=== PATIENT | male | born 1935 | race Caucasian/White ===

== ENCOUNTER 2016-12-16 10:55 | Inpatient (IN) | payer MEDICARE, BC, OTHER ==
--- NOTE | ~2016-12-16 | HP ---
History And Physical [place] [id number] [facility] [place]. [address] NAME: MICHAEL JARA : 37 STATUS : ADM IN [facility]#: [id number] AGE: 81 ADM/REG DATE : 12/16/16 MR#: [id number] REPORT SERV DATE: 12/17/16 DICTATED BY: CHANDRA SHARPE DATE: 12/16/16 REPORT STATUS : Draft TRANSCRIBED BY: ARTEM DATE: 12/16/16 DATE OF ADMISSION: 12/16/2016 CHIEF COMPLAINT: Low blood pressure. HISTORY OF PRESENT ILLNESS: This is an 81-year-old gentleman with medical history of chronic kidney disease stage 4; congestive heart failure; ischemic cardiomyopathy, status post AICD placement; hypertension; and asthma, who presented to the security checker for routine followup of asthma treatment who was found to have significant low blood pressure. The patient reports that about a week ago he went to his primary terrazzo mechanic where his blood pressure medications were titrated. It was noted that the dose of diuretics was adjusted as well as some of the antihypertensive medications. They noted that he had a transient hypotension at home where his blood pressure was in the 80s. Daughters report he did not take some of the antihypertensives. Repeat blood pressure at home was in the 120s. The patient reports that about three days ago he recommenced all blood pressure medication and diuretics. He has been having some lightheadedness when going from supine to standing position. He denies any syncopal episode. He denied any chest pain. No associated shortness of breath. No orthopnea, no paroxysmal nocturnal dyspnea, no bilateral lower extremity swelling. He denied any nausea, no vomiting, no diarrhea. He denied any chest pain, fever or chills, or cough. The patient reported that he went to the security checker today for routine followup of his asthma management and was found to have a blood pressure of 87/53. Hence, the security checker decided to admit the patient to the hospital for further evaluation of definitive etiology of hypotension. PAST MEDICAL HISTORY: 1. Chronic kidney disease stage 4. 2. Chronic atrial fibrillation, on chronic anticoagulation. 3. Ischemic cardiomyopathy. 4. History of congestive heart failure with reduced EF of 40%. 5. Hyperlipidemia. 6. History of coronary artery disease. 7. History of renal artery stenosis, status post renal artery stents x4. 8. History of coronary artery disease, status post remote history of CABG. PAST SURGICAL HISTORY: 1. Bilateral knee replacement surgeries. 2. CABG. 3. History of renal stent placement x4. SOCIAL HISTORY: Denies drinking alcohol, smoking cigarettes, or illicit drug use. The patient currently lives with his daughter. It was noted that the patient had been and 5 times. FAMILY HISTORY: Significant for hypertension. No known history of kidney disease or heart attack or [place]. History And Physical [address] [address] NAME: MICHAEL JARA : 36 STATUS : ADM IN PAT#: [id number] AGE: 81 ADM/REG DATE : 12/16/16 MR#: [id number] REPORT SERV DATE: 12/17/16 DICTATED BY: CHANDRA SHARPE DATE: 12/16/16 REPORT STATUS : Draft TRANSCRIBED BY: ARTEM DATE: 12/16/16 ALLERGIES: THE PATIENT IS ALLERGIC TO CODEINE. HOME MEDICATIONS: 1. Nitroglycerin 0.4 mg nitrate. 2. Coreg 6.25 mg p.o. b.i.d. 3. Metolazone 2.5 mg p.o. Mondays. 4. Simvastatin 40 mg p.o. at bedtime. 5. Torsemide 100 mg p.o. daily. 6. Tizanidine 4 mg p.o. t.i.d. 7. Breo Ellipta 100/25 mcg inhaler. 8. Eliquis 2.5 mg p.o. b.i.d. 9. Imdur 60 mg p.o. daily. 10.Zyloprim 100 mg p.o. daily. 11.Ventolin HFA 1 puff every four hours p.r.n. 12.Valsartan 40 mg p.o. daily. 13.Aldactone 25 mg p.o. daily. 14.Tamsulosin 0.4 mg p.o. daily. 15.Albuterol nebulization p.r.n. 16.Phenergan 25 mg p.o. p.r.n. for nausea and vomiting. REVIEW OF SYSTEMS: 12-point review of systems performed, essentially negative. Positive findings as per HPI. PHYSICAL EXAMINATION: VITAL SIGNS: On presentation, blood pressure on the floor initial reading was 87/50, pulse rate of 70 beats per minute, respiratory rate of 14 cycles per minute, and saturating 97% on room air. GENERAL: Not in acute distress. HEENT: Pupils are equal, round, and reactive. Extraocular muscle intact. Not pale. Anicteric. No JVD. Oral mucosa dry. NECK: Supple. No JVD. CHEST: Midline sternotomy surgical scar healed. AICD in the left upper chest wall. Surgical scar around the AICD intact. No erythema. No area of tenderness. Diffuse expiratory wheezes. No crackles. No rhonchi. CARDIOVASCULAR: Regular rate and rhythm. S1 and S2. No murmurs, no rubs, no gallops. ABDOMEN: Obese and nontender. No palpably enlarged organomegaly. LOWER EXTREMITIES: No pedal edema. LABORATORY DATA: WBC 8.4, hemoglobin 13.7, hematocrit 40.9, MCV 100.2, and platelets 138. BNP 96. Comprehensive metabolic panel: Sodium 133, potassium 4.4, chloride 93, bicarb 34, BUN 68, creatinine 2.78, GFR 21, and glucose 88. Total protein 6.7, total bilirubin is 0.6, alkaline phosphatase 66, ALT 26, ALT 26, lactate 1.5. Chest x-ray: Impression: Cardiomegaly, sternotomy. AICD. No acute cardiopulmonary abnormality. ASSESSMENT AND PLAN: History And Physical [address] [address] NAME: MICHAEL JARA : 37 STATUS : ADM [facility]#: [id number] AGE: 81 ADM/REG DATE : 12/16/16 MR#: [id number] REPORT SERV DATE: 12/17/16 DICTATED BY: CHANDRA SHARPE DATE: 12/16/16 REPORT STATUS : Draft TRANSCRIBED BY: MODL DATE: 12/16/16 1. Orthostatic hypotension, likely related to side effect of antihypertensives and diuretics. 2. Chronic kidney disease stage 4. 3. Chronic atrial fibrillation, on chronic anticoagulation. 4. Hypertension. 5. Ischemic cardiomyopathy, status post AICD placement. 6. Chronic heart failure with reduced ejection fraction. PLAN: 1. Given the presence of hypotension with orthostatic symptoms, I will start the patient on IV normal saline bolus. We will recheck blood pressure. Of note, the patient's primary director of kids and terrazzo mechanic are being consulted by Dr. Hwang(patient's primary security checker). 2. There is etiology of hypotension likely related to medication side effect. There is no evidence of sepsis in this patient. No evidence of cardiogenic shock. At this point, we will hold all patient's antihypertensives and diuretics and monitor blood pressure closely. We will reinstitute antihypertensive and diuretics when blood pressure can tolerate. 3. Code status: DNR per family's wishes. 4. DVT prophylaxis: Subcu heparin. ADMISSION DISPOSITION: Inpatient. IOO/MODL Chandra Sharpe MD / [id number] CC: MD Argelia Bush M.D.
--- NOTE | ~2016-12-16 | DS ---
Discharge Summary [facility] [address] [facility] [place]. [address] NAME: MICHAEL JARA : 37 STATUS : DIS IN PAT#: [id number] AGE: 81 ADM/REG DATE : 12/16/16 MR#: [id number] REPORT SERV DATE: 12/22/16 DICTATED BY: CHANDRA SHARPE DATE: 12/21/16 REPORT STATUS : Draft TRANSCRIBED BY: MODLea DATE: 12/21/16 ADMISSION DATE: 12/16/2016 DISCHARGE DATE: 12/21/2016 CONSULTATION: 1. [facility]. 2. Cardiology, Dr. Bar. INVASIVE PROCEDURES: None. DISCHARGE DIAGNOSES: 1. Orthostatic hypotension, resolved. 2. Orthostatic dizziness, resolved. 3. Acute kidney injury on chronic kidney disease stage 4. 4. Chronic heart failure with reduced EF. 5. Ischemic cardiomyopathy. Estimated EF 40% to 45%, status post biventricular pacemaker/ICD insertion. 6. History of coronary artery disease, status post remote history of CABG. 7. Chronic atrial fibrillation. 8. Hyperlipidemia. 9. History of renal artery stenosis, status post renal artery stents. 10.History of coronary artery disease, status post remote history of CABG. DISCHARGE CONDITION: Stable. HISTORY OF PRESENT ILLNESS: For detailed HPI, please make reference to Dr. Chandra Sharpe's dictation. In brief, this is an 81-year-old gentleman with medical history of chronic kidney disease stage 4, congestive heart failure, ischemic cardiomyopathy, status post AICD placement, hypertension who was admitted directly from the charge entry specialist's office with concerns of hypotension. It was of note that the patient recently had a followup with primary deburr operator about two weeks prior to presentation, and his diuretics and antihypertensive medications was transiently increased and per family members report, the patient has had some episodes of hypotension. He went to his primary charge entry specialist's office for followup of his known asthma where he was found to have a blood pressure of 87/53 and persistent lightheadedness and dizziness. The primary charge entry specialist contacted the hospital for direct admission for further evaluation. HOSPITAL COURSE: 1. Orthostatic hypotension. On arrival to the hospital, the patient was orthostatic by symptoms and by vital signs. IV fluid resuscitation was started. The patient's home dose of antihypertensives and diuretics were held. The patient's blood pressure improved after IV fluid normal saline bolus. The patient's blood pressure remained significantly improved after IV fluid bolus, and blood pressure remained stable in the 120s. The patient's primary deburr operator and Cardiology were consulted. The patient's cardiac meds were reinstituted when the patient's blood pressure was able to tolerate. Also, the patient's diuretics were recommenced; however, the patient's creatinine Discharge Summary [address] [address] NAME: MICHAEL JARA : 37 STATUS : DIS IN PAT#: [id number] AGE: 81 ADM/REG DATE : 12/16/16 MR#: [id number] REPORT SERV DATE: 12/22/16 DICTATED BY: CHANDRA SHARPE DATE: 12/21/16 REPORT STATUS : Draft TRANSCRIBED BY: ARTEM DATE: 12/21/16 became elevated from a baseline of 2.78 to 2.94. The patient's diuretics were transiently discontinued. The patient's creatinine then trended back to 2.6. Per Nephrology, the patient was advised to continue to hold all diuretics, to take Demadex if he gains more than 3 pounds within the next five days. The patient was also advised to continue followup with Cardiology and Nephrology as an outpatient. 2. Ischemic cardiomyopathy with EF of 40-45%. No evidence of acute decompensated heart failure. The patient had no chest pain during the course of this admission. The patient was advised to continue followup with Cardiology as an outpatient. DISCHARGE MEDICATIONS: 1. Coreg 6.25 mg p.o. b.i.d. 2. Eliquis 2.5 mg p.o. b.i.d. 3. Imdur 60 mg p.o. daily. 4. Zanaflex 4 mg p.o. t.i.d. p.r.n. for severe muscle spasms. 5. Albuterol solution 0.08% p.r.n. 6. Zocor 40 mg p.o. daily. 7. Demadex 60 mg daily if the patient gains more than 3 pounds within 24-48 hours or greater than 5 pounds per week prior nephrology recommendation. FOLLOW UP: 1. The patient to follow up with [facility] within one to two weeks of discharge. 2. The patient to follow up with primary care physician within one week of discharge. DISCHARGE ACTIVITIES: As tolerated. DISCHARGE DIET: Low salt diet. Greater than 30 minutes was used to prepare this patient's dictation and advised the patient on discharge plans and followup. DICTATED BY: MD ANGE Bush/ARTEM Chandra Sharpe MD / [id number] CC: MD Argelia Bush M.D.
--- NOTE | ~2016-12-16 | CN ---
Consultation Report [facility] [address] [place]. [address] NAME: MICHAEL JARA : 37 STATUS : ADM IN PAT#: [id number] AGE: 81 ADM/REG DATE : 12/16/16 MR#: [id number] REPORT SERV DATE: 12/16/16 DICTATED BY: ROCK BAR JR. DATE: 12/16/16 REPORT STATUS : Draft TRANSCRIBED BY: MODL DATE: 12/16/16 CARDIOLOGY CONSULT DATE OF CONSULTATION: [facility] SURGERY CONSULTANT: Riki Ruth MD. HISTORY OF PRESENT ILLNESS: An 81-year-old, obese, white male, referred from a piano professor office because of symptomatic hypotension and presyncopal spells. Denies chest pain, or change in breathing status. He has just arrived on the monitor floor and workup is currently in progress. Incomplete data. White consults ordered already. EKG shows no acute ST segment change with chronic atrial fibrillation. Currently, apparently on Eliquis anticoagulation with no history of bleeding. He is getting a normal saline bolus for hypotension. He is alert and lying comfortably in bed as long as he does not get up and try to stand. He has an ischemic cardiomyopathy in the past. His ejection fraction has been estimated at 40%-45%. No recent echo. He is status post biventricular pacemaker, ICD insertion, and has a history of CABG and chronic kidney disease. ALLERGIES: CODEINE ALLERGY. MEDICATIONS: Home medication list reviewed. SOCIAL HISTORY: No illicit drugs. FAMILY HISTORY: Noncontributory. PHYSICAL EXAMINATION: VITAL SIGNS: BLOOD PRESSURE 90/70. PULSE is 80 and irregularly irregular. RESPIRATIONS 20. Afebrile. HEENT: No xanthelasma. NECK: No JVD at 30 degrees, no thyromegaly, no carotid bruit. LUNGS: Clear to auscultation and percussion. COR: No thrills, heaves, normal S1, S2. No gallop. No rub. No murmur. ABD: Soft, nontender, no hepatosplenomegaly, no mass. EXT: Without edema or pulse deficit. MS: Back without spine or costovertebral angle tenderness. NEURO: Symmetric findings. DISCUSSION: Hypotension of uncertain etiology. Rule out blood loss anemia. On Eliquis anticoagulation. Rule out silent [place]. Check echocardiogram for possible deterioration in left ventricular systolic function since last study. Laboratory studies have been ordered. Consultation Report [place] [id number] [facility] [place] [address] NAME: MICHAEL JARA : 37 STATUS : ADM IN PAT#: [id number] AGE: 81 ADM/REG DATE : 12/16/16 MR#: [id number] REPORT SERV DATE: 12/16/16 DICTATED BY: ROCK BAR JR. DATE: 12/16/16 REPORT STATUS : Draft TRANSCRIBED BY: ARTEM DATE: 12/16/16 Thank you for this consultation. We will follow with you. CAREN/ARTEM Rock Bar Jr., M.D. / [id number] CC: MD ANT Bush R. HENRY
--- NOTE | ~2016-12-16 | CN ---
Consultation Report [facility] [address] [place]. [address] NAME: MICHAEL JARA : 37 STATUS : ADM IN PAT#: [id number] AGE: 81 ADM/REG DATE : 12/16/16 MR#: [id number] REPORT SERV DATE: 12/16/16 DICTATED BY: CYNTHIA FISHMAN DATE: 12/16/16 REPORT STATUS : Draft TRANSCRIBED BY: MODL DATE: 12/16/16 CONSULTATION DATE OF CONSULTATION: 12/16/2016 REASON FOR CONSULTATION: Chronic kidney disease, stage 4. HISTORY OF PRESENT ILLNESS: This is a very pleasant, chronic kidney disease stage 3 to stage 4, patient of Dr. Barney Sol. It appears his baseline creatinine has been approximately 2 to 2.9 across the year of 2016, and he has required frequent followup due to volume management. He is also seen in the outpatient setting by Cardiology as well as Pulmonary Services. He reports today from his doper operator's office with complaint of dizziness and near-syncope and is direct admitted from their office to the hospitalist service. We are asked to evaluate this gentleman in light of his renal dysfunction. His last available laboratories show a creatinine of 2.7 with a GFR of 25 mL/minute. The patient recently was followed up at the Nephrology office with Dr. Sol on 11/11/2016, with re-initiation of carvedilol at 6.25 mg p.o. twice daily, with continuation of his torsemide and spironolactone as well as continuation of his valsartan. Metolazone was resumed at 2.5 mg once weekly and p.r.n. for five pound weight gain. He was seen in subsequent followup by Lillian Rivera, nurse practitioner, with no modification made to his medications at that time. The patient reports that over the last three to four days, he has had increasing difficulty with dizziness and was noted to be hypotensive at his pulmonary followup and was initiated for treatment here to [facility] for direct admission. Blood pressure on initial assessment by records here appears to be 87/50 with subsequent blood pressure at 120/50, blood pressure readings at the pulmonary office appear to be in the mid 80s systolic. The patient reports no loss of consciousness at home, and no stephanie syncope. He is awake and alert this afternoon. His volume status looks reasonably well. His is at bedside during evaluation. PAST MEDICAL HISTORY: Positive for CKD stage 3 to stage 4. Baseline creatinine around 2.1 to 2.7 over the last calendar year, followed by Dr. Barney Sol. History also positive for chronic atrial fibrillation with Eliquis, chronic back pain, arthritis, asthma, coronary artery disease, hyperlipidemia, hypertension, ischemic cardiomyopathy, renal artery stenosis, systolic congestive heart failure with ejection fraction at 40%. Most recent renal Doppler showed no evidence of renal artery stenosis, according to recent notation by Dr. Sol. REVIEW OF SYSTEMS: Completed. Please see HPI for pertinent details. SOCIAL HISTORY: No ETOH. No illicit drugs. No tobacco. He is , lives here locally, and has a supportive family. FAMILY HISTORY: Noncontributory and not reviewed during this consultation and dictation Consultation Report [address] [place]. [address] NAME: MICHAEL JARA : 37 STATUS : ADM IN PAT#: [id number] AGE: 81 ADM/REG DATE : 12/16/16 MR#: [id number] REPORT SERV DATE: 12/16/16 DICTATED BY: CYNTHIA FISHMAN DATE: 12/16/16 REPORT STATUS : Draft TRANSCRIBED BY: ARTEM DATE: 12/16/16 ALLERGIES: HE LISTS ALLERGIES TO CODEINE. HOME MEDICATIONS: Active medications include albuterol one puff inhaled q.4 hours p.r.n., Zyloprim 100 mg p.o. daily, Eliquis 2.5 mg p.o. b.i.d., Coreg 6.25 mg p.o. b.i.d., Proscar 5 mg p.o. daily, Breo Ellipta one puff inhaled daily, Imdur 60 mg p.o. daily, Zaroxolyn 2.5 mg on Wednesday, Nitrostat 0.4 sublingual p.r.n., Phenergan 25 mg p.o. q.6 hours p.r.n., Zocor 40 mg p.o. at bedtime, spironolactone 25 mg p.o. daily, Flomax 0.4 mg p.o. daily, Zanaflex 4 mg p.o. t.i.d. p.r.n. for muscle spasms, Demadex 100 mg daily, and Diovan 40 mg daily. PHYSICAL EXAMINATION: VITAL SIGNS: Blood pressure 120/80, temperature 97.3, respiratory rate 16, heart rate is 72 beats per minute and regular, 97% on room air. GENERAL: He is an obese, male patient, lying in bed during evaluation. Awake and alert. No acute distress during evaluation. HEENT: Normocephalic and atraumatic. Normal ocular movements. No scleral icterus. Conjunctival pallor is appreciated. NECK: Supple. No thyromegaly. No JVD or mass. CHEST: Shows positive S1 and S2. No rubs. No gallops. LUNGS: Diminished. Clear to auscultation throughout with no rhonchi or wheezes noted. GI: Shows an obese, rounded abdomen, and no appreciable mass or tenderness. : Deferred. EXTREMITIES: Show no clubbing, cyanosis, or edema. NEUROLOGIC: Appears to be grossly intact. Nonfocal. SKIN: Warm, dry, and intact to visualized surfaces. No rash, lesions, or ecchymosis. PSYCHIATRIC: He is of appropriate mood and affect. LABORATORIES: Unavailable at time of dictation. This patient is direct admitted and laboratories are yet to be collected. IMPRESSION AND PLAN: This is a chronic kidney disease stage 3 to stage 4, male patient of Dr. Barney Sol with known decreased ejection fraction. Recent modification was undertaken of his medications with reintroduction of beta-amadou at last followup with Dr. Sol with reasonable blood pressure control at subsequent followup with Lillian Rivera with continued diuretic pattern as previous. The patient has unfortunately developed over control of his blood pressure readings and is sent from his Pulmonary followup for hypotension and near syncope. His current laboratories are unavailable, but I suspect he will certainly have a rise in his serum creatinine due to hypotension plus or minus any volume contraction with his diuretics as his volume situation is currently stable and he is being provided a normal saline bolus. We will hold his current diuretics and we will also hold his antihypertensives medications in effort to reset his treatment plan. He has been seen by Cardiology and their plans currently are to obtain an echo, provide further constructive workup with troponin serial and D-dimer as well. We will also check a urine sodium, urine creatinine, and urine urea. Evaluate his laboratories as they are available. I see no clinical reasoning to evaluate a renal ultrasound at this point. We will check Consultation Report [place] [id number] [place]. [address] NAME: MICHAEL JARA : 37 STATUS : ADM IN PAT#: [id number] AGE: 81 ADM/REG DATE : 12/16/16 MR#: [id number] REPORT SERV DATE: 12/16/16 DICTATED BY: CYNTHIA FISHMAN DATE: 12/16/16 REPORT STATUS : Draft TRANSCRIBED BY: SMITAL DATE: 12/16/16 postvoid residual to assure complete emptying of his bladder and modify his diuretic pattern or his blood pressure control as he stabilizes from a blood pressure standpoint and his volume needs present. Further modification of treatment plan may be made based on clinical presentation, the patient's laboratory results, further consultation with renal attending. We appreciate consultation. We are glad to follow this patient with you. DICTATED BY: David Calero NP JR/ARTEM Cynthia Fishman M.D. / [id number] CC: MD Argelia Bush M.D.
[2016-12-16] MEDS ORDERED: NITROSTAT0.4 MG SL (11:40)
[2016-12-16] MEDS ORDERED: COREG6 PO (11:40)
[2016-12-16] MEDS ORDERED: DEMA100 PO (11:44)
[2016-12-16] MEDS ORDERED: BREO ELLIPTA INH (11:44)
[2016-12-16] MEDS ORDERED: ZOCOR40 PO (11:44)
[2016-12-16] MEDS ORDERED: ZAROX2.5B PO (11:44)
[2016-12-16] MEDS ORDERED: ZANAFLEX 4 MG TA4 MG PO (11:44)
[2016-12-16] MEDS ORDERED: PROBENECID/COLCHICIN PO (11:45)
[2016-12-16] MEDS ORDERED: IMDUR60 PO (11:45)
[2016-12-16] MEDS ORDERED: ELIQUIS 2.5 MG2.5 MG PO (11:45)
[2016-12-16] MEDS ORDERED: Z100 PO (11:45)
[2016-12-16] MEDS ORDERED: FLOMAX4 PO (11:46)
[2016-12-16] MEDS ORDERED: DIOVAN40 MG PO (11:46)
[2016-12-16] MEDS ORDERED: VENTOLIN HFA INH (11:46)
[2016-12-16] MEDS ORDERED: SPIRO25 PO (11:46)
[2016-12-16] MEDS ORDERED: PROSCAR5 PO (11:46)
[2016-12-16] MEDS ORDERED: ALBUTEROL0.083 % INH (11:47)
[2016-12-16] MEDS ORDERED: PR25 PO (11:47)
[2016-12-16 13:39] LABS: BASOPHILS 0.2 %; BASOPHILS ABSOLUTE 0.02 10/3/uL (0.0-0.16); EOSINOPHILS 0.7 %; EOSINOPHILS ABSOLUTE 0.06 10/3/uL (0.0-0.53); HEMATOCRIT 40.9 % (40.0-51.0); HEMOGLOBIN 13.7 g/dL (13.6-17.8); IMMATURE GRANULOCYTES 0.5 %; IMMATURE GRANULOCYTES ABSOLUTE 0.04 10/3/uL (0.0-0.11); LYMPHOCYTES 35.9 %; LYMPHOCYTES ABSOLUTE 3.02 10/3/uL (0.67-4.30); MEAN CORPUS HGB CONC 33.5 g/dL (32.0-36.0); MEAN CORPUSCULAR HEMOGLOB 33.6 pg (26.0-34.0); MEAN PLATELET VOLUME 10.2 fL (9.2-13.0); MONOCYTES 7.7 %; MONOCYTES ABSOLUTE 0.65 10/3/uL (0.21-1.20); NEUTROPHILS ABSOLUTE 4.62 10/3/uL (2.02-8.40); PLATELET COUNT 138 10/3/uL (150-400); RBC DISTRIBUTION WIDTH 13.9 % (12.0-16.0); RED CELL COUNT 4.08 10/6/uL (4.7-6.1); WHITE BLOOD CELLS 8.4 10/3/uL (4.5-10.5)
[2016-12-16 13:43] LABS: MEAN CORPUSCULAR VOLUME 100.2 fL (80-100)
[2016-12-16 13:44] LABS: MANUAL DIFF NO %
[2016-12-16 13:51] LABS: A/G RATIO 0.9 (0.7-1.9); ALBUMIN 3.2 G/DL (3.5-5.0); CALCIUM, SERUM 9.5 MG/DL (8.5-10.4); CHLORIDE, SERUM 93 MMOL/L (96-112); CO2 (CARBON DIOXIDE) 34 MMOL/L (24-34); GLOBULIN 3.5 G/DL (2.5-4.1); GLUCOSE, SERUM 88 MG/DL (60-99); PHOSPHORUS, SERUM 2.9 MG/DL (2.5-4.5); POTASSIUM, SERUM 4.4 MMOL/L (3.5-5.3); SGPT(ALT) 26 U/L (5-65); TOTAL BILIRUBIN 0.6 MG/DL (0-1.2); TOTAL PROTEIN 6.7 G/DL (6.0-8.5)
[2016-12-16 13:53] LABS: ALKALINE PHOSPHATASE 66 U/L (45-117); BUN (BLOOD UREA NITROGEN) 68 MG/DL (6-23); CREATININE 2.78 MG/DL (0.70-1.30); GFR AFRICAN AMERICAN 24 ML/MIN (>=60); GFR NON AFRICAN AMERICAN 21 ML/MIN (>=60); SGOT(AST) 26 U/L (5-40); SODIUM, SERUM 133 MMOL/L (135-148)
[2016-12-16 14:27] LABS: PROCALCITONIN 0.53 ng/mL (<0.5)
[2016-12-16 15:27] LABS: FREE T4 0.95 NG/DL (0.76-1.46); TROPONIN I 0.02 NG/ML (<0.05); ULTRASENSITIVE TSH 1.74 MCIU/ML (0.358-3.740)
[2016-12-17 07:18] LABS: BASOPHILS 0.2 %; BASOPHILS ABSOLUTE 0.02 10/3/uL (0.0-0.16); EOSINOPHILS 1.5 %; EOSINOPHILS ABSOLUTE 0.13 10/3/uL (0.0-0.53); HEMATOCRIT 40.7 % (40.0-51.0); HEMOGLOBIN 13.4 g/dL (13.6-17.8); IMMATURE GRANULOCYTES 0.4 %; IMMATURE GRANULOCYTES ABSOLUTE 0.03 10/3/uL (0.0-0.11); LYMPHOCYTES 40.5 %; LYMPHOCYTES ABSOLUTE 3.44 10/3/uL (0.67-4.30); MEAN CORPUS HGB CONC 32.9 g/dL (32.0-36.0); MEAN CORPUSCULAR HEMOGLOB 32.9 pg (26.0-34.0); MEAN PLATELET VOLUME 10.8 fL (9.2-13.0); MONOCYTES 6.1 %; MONOCYTES ABSOLUTE 0.52 10/3/uL (0.21-1.20); NEUTROPHILS 51.3 %; NEUTROPHILS ABSOLUTE 4.35 10/3/uL (2.02-8.40); PLATELET COUNT 136 10/3/uL (150-400); RED CELL COUNT 4.07 10/6/uL (4.7-6.1); WHITE BLOOD CELLS 8.5 10/3/uL (4.5-10.5)
[2016-12-17 07:19] LABS: MANUAL DIFF NO %
[2016-12-17 10:56] LABS: POTASSIUM, SERUM 3.9 MMOL/L (3.5-5.3); SGOT(AST) 22 U/L (5-40); SODIUM, SERUM 135 MMOL/L (135-148)
[2016-12-17 11:14] LABS: A/G RATIO 0.8 (0.7-1.9); ALBUMIN 3.1 G/DL (3.5-5.0); ALKALINE PHOSPHATASE 71 U/L (45-117); CALCIUM, SERUM 9.3 MG/DL (8.5-10.4); CHLORIDE, SERUM 94 MMOL/L (96-112); CO2 (CARBON DIOXIDE) 34 MMOL/L (24-34); CREATININE 2.33 MG/DL (0.70-1.30); GFR AFRICAN AMERICAN 29 ML/MIN (>=60); GFR NON AFRICAN AMERICAN 25 ML/MIN (>=60); GLOBULIN 3.7 G/DL (2.5-4.1); PHOSPHORUS, SERUM 2.4 MG/DL (2.5-4.5); SGPT(ALT) 27 U/L (5-65); TOTAL BILIRUBIN 0.6 MG/DL (0-1.2); TOTAL PROTEIN 6.8 G/DL (6.0-8.5); TROPONIN I 0.02 NG/ML (<0.05)
[2016-12-17 11:15] LABS: BUN (BLOOD UREA NITROGEN) 60 MG/DL (6-23); GLUCOSE, SERUM 122 MG/DL (60-99)
[2016-12-18 06:56] LABS: BASOPHILS 0.2 %; BASOPHILS ABSOLUTE 0.02 10/3/uL (0.0-0.16); EOSINOPHILS 1.5 %; EOSINOPHILS ABSOLUTE 0.13 10/3/uL (0.0-0.53); HEMATOCRIT 42.7 % (40.0-51.0); HEMOGLOBIN 14.2 g/dL (13.6-17.8); IMMATURE GRANULOCYTES 0.4 %; IMMATURE GRANULOCYTES ABSOLUTE 0.03 10/3/uL (0.0-0.11); LYMPHOCYTES 35.5 %; LYMPHOCYTES ABSOLUTE 3.03 10/3/uL (0.67-4.30); MEAN CORPUS HGB CONC 33.3 g/dL (32.0-36.0); MEAN CORPUSCULAR HEMOGLOB 32.9 pg (26.0-34.0); MEAN CORPUSCULAR VOLUME 99.1 fL (80-100); MEAN PLATELET VOLUME 10.2 fL (9.2-13.0); MONOCYTES 6.2 %; MONOCYTES ABSOLUTE 0.53 10/3/uL (0.21-1.20); NEUTROPHILS 56.2 %; NEUTROPHILS ABSOLUTE 4.79 10/3/uL (2.02-8.40); PLATELET COUNT 136 10/3/uL (150-400); RBC DISTRIBUTION WIDTH 13.8 % (12.0-16.0); RED CELL COUNT 4.31 10/6/uL (4.7-6.1); WHITE BLOOD CELLS 8.5 10/3/uL (4.5-10.5)
[2016-12-18 07:00] LABS: MANUAL DIFF NO %
[2016-12-18 07:12] LABS: ALBUMIN 3.4 G/DL (3.5-5.0); CALCIUM, SERUM 9.5 MG/DL (8.5-10.4); CHLORIDE, SERUM 91 MMOL/L (96-112); CO2 (CARBON DIOXIDE) 32 MMOL/L (24-34); CREATININE 2.38 MG/DL (0.70-1.30); GFR AFRICAN AMERICAN 29 ML/MIN (>=60); GFR NON AFRICAN AMERICAN 25 ML/MIN (>=60); GLUCOSE, SERUM 122 MG/DL (60-99); POTASSIUM, SERUM 3.3 MMOL/L (3.5-5.3); SODIUM, SERUM 132 MMOL/L (135-148); TROPONIN I 0.03 NG/ML (<0.05)
[2016-12-18 07:13] LABS: BUN (BLOOD UREA NITROGEN) 66 MG/DL (6-23); PHOSPHORUS, SERUM 3.7 MG/DL (2.5-4.5)
[2016-12-19 08:39] LABS: HEMATOCRIT 46.5 % (40.0-51.0); HEMOGLOBIN 15.9 g/dL (13.6-17.8); MEAN CORPUS HGB CONC 34.2 g/dL (32.0-36.0); MEAN CORPUSCULAR HEMOGLOB 33.8 pg (26.0-34.0); MEAN CORPUSCULAR VOLUME 98.9 fL (80-100); MEAN PLATELET VOLUME 10.6 fL (9.2-13.0); PLATELET COUNT 152 10/3/uL (150-400); RBC DISTRIBUTION WIDTH 13.7 % (12.0-16.0)
[2016-12-19 08:40] LABS: MANUAL DIFF YES %; WHITE BLOOD CELLS 12.2 10/3/uL (4.5-10.5)
[2016-12-19 08:59] LABS: ALBUMIN 3.9 G/DL (3.5-5.0); CALCIUM, SERUM 10.2 MG/DL (8.5-10.4); CHLORIDE, SERUM 86 MMOL/L (96-112); CREATININE 2.85 MG/DL (0.70-1.30); GFR AFRICAN AMERICAN 23 ML/MIN (>=60); GFR NON AFRICAN AMERICAN 20 ML/MIN (>=60); GLUCOSE, SERUM 129 MG/DL (60-99); PHOSPHORUS, SERUM 4.3 MG/DL (2.5-4.5); SODIUM, SERUM 133 MMOL/L (135-148)
[2016-12-19 09:00] LABS: BUN (BLOOD UREA NITROGEN) 72 MG/DL (6-23); CO2 (CARBON DIOXIDE) 37 MMOL/L (24-34)
[2016-12-19 09:17] LABS: BAND NEUTROPHILS 4 %; EOSINOPHILS 2 %; EOSINOPHILS ABSOLUTE (CALC) 0.24 10/3/uL (0.0-0.53); LYMPHOCYTES 39 %; LYMPHOCYTES ABSOLUTE (CALC) 4.76 10/3/uL (0.67-4.30); MACROCYTES 1+ (5-10/OIF) (0-5/OIF); MONOCYTES 7 %; MONOCYTES ABSOLUTE (CALC) 0.85 10/3/uL (0.21-1.20); NEUTROPHILS ABSOLUTE (CALC) 6.34 10/3/uL (2.02-8.40); PLATELET ESTIMATE ADQ (ADEQUATE); POLYCHROMASIA 1+ (2-5/OIF) (0-1/OIF); SEGMENTED NEUTROPHIL (0) 48 %; TOTAL NUCLEATED CELLS 100
[2016-12-20 06:18] LABS: HEMATOCRIT 42.7 % (40.0-51.0); HEMOGLOBIN 14.3 g/dL (13.6-17.8); MEAN CORPUS HGB CONC 33.5 g/dL (32.0-36.0); MEAN CORPUSCULAR HEMOGLOB 32.9 pg (26.0-34.0); MEAN CORPUSCULAR VOLUME 98.4 fL (80-100); MEAN PLATELET VOLUME 10.6 fL (9.2-13.0); NUCLEATED RED BLOOD CELLS 0.5 /100WBC (0-0); PLATELET COUNT 144 10/3/uL (150-400); RBC DISTRIBUTION WIDTH 13.6 % (12.0-16.0); RED CELL COUNT 4.34 10/6/uL (4.7-6.1); WHITE BLOOD CELLS 9.9 10/3/uL (4.5-10.5)
[2016-12-20 06:19] LABS: MANUAL DIFF YES %
[2016-12-20 06:29] LABS: ALBUMIN 3.4 G/DL (3.5-5.0); BUN (BLOOD UREA NITROGEN) 78 MG/DL (6-23); CALCIUM, SERUM 9.6 MG/DL (8.5-10.4); CHLORIDE, SERUM 86 MMOL/L (96-112); CO2 (CARBON DIOXIDE) 32 MMOL/L (24-34); CREATININE 2.94 MG/DL (0.70-1.30); GFR AFRICAN AMERICAN 22 ML/MIN (>=60); GFR NON AFRICAN AMERICAN 19 ML/MIN (>=60); GLUCOSE, SERUM 128 MG/DL (60-99); PHOSPHORUS, SERUM 4.6 MG/DL (2.5-4.5); POTASSIUM, SERUM 3.5 MMOL/L (3.5-5.3); SODIUM, SERUM 130 MMOL/L (135-148)
[2016-12-20 07:14] LABS: BAND NEUTROPHILS 3 %; BASOPHILS 1 %; LYMPHOCYTES 33 %; LYMPHOCYTES ABSOLUTE (CALC) 3.27 10/3/uL (0.67-4.30); MONOCYTES 11 %; MONOCYTES ABSOLUTE (CALC) 1.09 10/3/uL (0.21-1.20); NEUTROPHILS ABSOLUTE (CALC) 5.45 10/3/uL (2.02-8.40); PLATELET ESTIMATE SLT DEC (ADEQUATE); SEGMENTED NEUTROPHIL (0) 52 %; TOTAL NUCLEATED CELLS 100
[2016-12-20 07:15] LABS: RBC MORPHOLOGY NORM (NORMAL)
[2016-12-21 05:10] LABS: BASOPHILS 0.2 %; BASOPHILS ABSOLUTE 0.02 10/3/uL (0.0-0.16); HEMATOCRIT 42.7 % (40.0-51.0); HEMOGLOBIN 14.5 g/dL (13.6-17.8); IMMATURE GRANULOCYTES 0.5 %; IMMATURE GRANULOCYTES ABSOLUTE 0.05 10/3/uL (0.0-0.11); LYMPHOCYTES 34.5 %; LYMPHOCYTES ABSOLUTE 3.42 10/3/uL (0.67-4.30); MEAN CORPUSCULAR HEMOGLOB 33.4 pg (26.0-34.0); MEAN CORPUSCULAR VOLUME 98.4 fL (80-100); MEAN PLATELET VOLUME 10.2 fL (9.2-13.0); MONOCYTES 6.3 %; MONOCYTES ABSOLUTE 0.62 10/3/uL (0.21-1.20); NEUTROPHILS 57.5 %; NEUTROPHILS ABSOLUTE 5.71 10/3/uL (2.02-8.40); PLATELET COUNT 138 10/3/uL (150-400); RBC DISTRIBUTION WIDTH 13.7 % (12.0-16.0); RED CELL COUNT 4.34 10/6/uL (4.7-6.1); WHITE BLOOD CELLS 9.9 10/3/uL (4.5-10.5)
[2016-12-21 05:15] LABS: MANUAL DIFF NO %
[2016-12-21 05:17] LABS: ALBUMIN 3.4 G/DL (3.5-5.0); BUN (BLOOD UREA NITROGEN) 83 MG/DL (6-23); CALCIUM, SERUM 9.2 MG/DL (8.5-10.4); CHLORIDE, SERUM 89 MMOL/L (96-112); CO2 (CARBON DIOXIDE) 35 MMOL/L (24-34); GFR AFRICAN AMERICAN 26 ML/MIN (>=60); GFR NON AFRICAN AMERICAN 22 ML/MIN (>=60); GLUCOSE, SERUM 134 MG/DL (60-99); PHOSPHORUS, SERUM 3.7 MG/DL (2.5-4.5); SODIUM, SERUM 133 MMOL/L (135-148)
[2016-12-21] MEDS ORDERED: ASAB PO (12:36)
[2016-12-21] MEDS ORDERED: MVI PO (12:36)
== END 2016-12-21 14:03 | disposition home or self-care (01) | DRG 312 ==
LOC: 1SO 10:55
PROVIDERS: Hospitalist; Internal Medicine Cardiovascular Disease; Internal Medicine Nephrology; Internal Medicine Pulmonary Disease; Registered Nurse
DX: I95.2 Hypotension due to drugs (principal); N17.9 Acute kidney failure, unspecified; N18.4 Chronic kidney disease, stage 4 (severe); I13.0 Hypertensive heart and chronic kidney disease with heart failure and stage 1 through stage 4 chronic kidney disease, or unspecified chronic kidney disease; I50.22 Chronic systolic (congestive) heart failure; Z68.41 Body mass index [BMI] 40.0-44.9, adult; I48.2 Chronic atrial fibrillation; G47.33 Obstructive sleep apnea (adult) (pediatric); E66.01 Morbid (severe) obesity due to excess calories; Z66 Do not resuscitate; I25.5 Ischemic cardiomyopathy; I25.10 Atherosclerotic heart disease of native coronary artery without angina pectoris; T50.2X5A Adverse effect of carbonic-anhydrase inhibitors, benzothiadiazides and other diuretics, initial encounter; J45.909 Unspecified asthma, uncomplicated; G89.29 Other chronic pain; E78.5 Hyperlipidemia, unspecified; Z79.01 Long term (current) use of anticoagulants; Z79.899 Other long term (current) drug therapy; Z95.1 Presence of aortocoronary bypass graft; Z96.653 Presence of artificial knee joint, bilateral; Z95.810 Presence of automatic (implantable) cardiac defibrillator; Z88.5 Allergy status to narcotic agent
CPT/HCPCS: 71010; 80053; 80069; 82272; 82570; 83036; 83605; 83615; 83735; 83880; 84100; 84145; 84300; 84439; 84443; 84484; 84540; 85025; 85379; 87040; 93005; 94640; A9270-GY; C8929; J2405; Q9957